=== PATIENT | female | born 1970 | race Caucasian/White ===

== ENCOUNTER 2019-10-25 09:33 | Outpatient (CLI) | payer BC ==
--- NOTE | 2019-10-25 15:48 | MRI ---
MRI OF THE RIGHT KNEE: 10/25/19 PROVIDED CLINICAL HISTORY: Knee pain. FINDINGS: No comparisons. The anterior cruciate ligament, posterior cruciate ligament, lateral collateral ligamentous complex, and extensor mechanism appear intact. There is partial thickness tearing involving the anterior fiber s of the superficial MCL proximally. There is a deficient appearance to the free edge of the body of the lateral meniscus, compatible with radial tear. The medial meniscus demonstrates no evidence for tear. No focal articular cartilage defect is apparent. There is mild edema within the lateral infrapatellar at suggesting a patellar tracking abnormality. There is partial thickness articular cartilage fissur ing involving the medial patellar facet. Patella souleymane is noted. There is marrow edema involving the lateral greater than medial femoral epicondyles. Regional marrow and muscular signal appear otherwise normal. There is a small knee joint effusion. IMPRESSION: 1. Partial MCL tear. 2. Findings suspicious for radial tear involving the body of the lateral meniscus. 3. Contusions involving the lateral greater than medial femoral epicondyles. 4. Patellar chondrosis as described. 5. Small knee joint effusion. 6. Edema within the lateral infrapatellar fat, which can be seen in a setting of patellar tracki ng abnormality. POS: BARRON
== END 2019-10-25 09:34 | disposition home or self-care (01) ==
LOC: SCSMRI 09:33
PROVIDERS: ATTEND Orthopaedic Surgery
DX: S83.411A Sprain of medial collateral ligament of right knee, initial encounter (principal); S80.01XA Contusion of right knee, initial encounter; M25.461 Effusion, right knee; M22.2X1 Patellofemoral disorders, right knee; R60.0 Localized edema

== ENCOUNTER 2020-04-18 07:34 | Outpatient (CLI) | payer BC ==
[2020-04-18 18:27] LABS: SARS-CoV-2 MS2 Positive; SARS-CoV-2 N Gene Negative; SARS-CoV-2 S Gene Negative; SARS-CoV-2 by NAA Not Detected (NotDetected); SARS-CoV-2 orf1ab Negative
== END 2020-04-18 07:35 | disposition home or self-care (01) ==
LOC: LABBT 07:34
PROVIDERS: ATTEND Orthopaedic Surgery
DX: S83.411A Sprain of medial collateral ligament of right knee, initial encounter (principal); M17.11 Unilateral primary osteoarthritis, right knee; Z20.822 Contact with and (suspected) exposure to COVID-19
CPT/HCPCS: 87635; U0003; U0005

== ENCOUNTER 2020-04-23 05:49 | Day surgery (SDC) | payer BC ==
[2020-04-19 10:51] VITALS: BMI 22.4
[2020-04-23] MEDS ORDERED: Bupivacaine 0.25% HCL 30 ML VIAL ONE (06:39)
[2020-04-23] MEDS ORDERED: EPINEPHrine 1 MG/ML AMP ONE (06:39)
[2020-04-23] MEDS ORDERED: Fentanyl 100 MCG/2 ML VIAL ONE (07:00)
[2020-04-23] MEDS ORDERED: Scopolamine 1.5 mg/72 hour Patch ONE (07:02)
[2020-04-23] MEDS ORDERED: Midazolam HCl 2 mg/2 ml Vial ONE (07:02)
[2020-04-23] MEDS ORDERED: Lidocaine 1% (PF) 30 ML VIAL ONE (07:47)
[2020-04-23] MEDS ORDERED: Meperidine HCl/PF 25 MG/ML VIAL ONE (08:12)
[2020-04-23] MEDS ORDERED: Lidocaine 1% PF 5 ML VIAL ONE (08:53)
[2020-04-23] MEDS ORDERED: PROPOFOL 200 MG/20 ML VIAL ONE (08:53)
[2020-04-23] MEDS ORDERED: Metoclopramide HCl 10 MG/2 ML VIAL ONE (08:53)
[2020-04-23] MEDS ORDERED: diphenhydrAMINE 50 MG/ML VIAL ONE (08:53)
[2020-04-23] MEDS ORDERED: Ondansetron PF 4 MG/2 ML Vial ONE (08:53)
[2020-04-23] MEDS ORDERED: Dexamethasone 20 MG/5 ML VIAL ONE (08:53)
--- NOTE | 2020-04-23 10:52 | OP ---
DATE OF PROCEDURE: 04/23/2020 PREOPERATIVE DIAGNOSES: 1. Healed partial medial collateral ligament tear. 2. Partial radial tear lateral meniscus. 3. Patellar chondrosis. 4. Knee effusion. 5. Infrapatellar friction fat pad syndrome/track abnormality. POSTOPERATIVE DIAGNOSES: 1. Fat pad friction syndrome. 2. Grade 1 patellar chondrosis. 3. Grade 1 lateral tibial plateau changes. 4. No radial tear of lateral meniscus. ANESTHESIA: Rebecca. Patient received an LMA with 30 mL of Marcaine 0.25% with epinephrine, preprocedure, and 20 mL of lidocaine 1% plain, postprocedure. ESTIMATED BLOOD LOSS: Less than 20 mL. TOURNIQUET TIME: 17 minutes at 250 mmHg. ANTIBIOTICS: Ancef 2 g. COMPLICATIONS: None. HISTORY OF PRESENT ILLNESS: Ms. Griffith is a pleasant 49-year-old female presents to me with right knee pain. The pain has been present since hurting her knee over the summer in September. The patient had failed conservative measures to include an injection, home therapy, anti-inflammatories. The patient continued to have pain, tried conservative measures and desired a diagnostic arthroscopy. I discussed risks and benefits, debridement, shaving, evaluation of joint to include pain, scar, bleeding, infection, damage to vital structures, decreased range of motion, strength, knee pain despite surgical intervention, need for further surgeries, damage to vital structures, blood clots, loss of life or limb. She understood the risks and benefits of procedure and elected to proceed. DESCRIPTION OF PROCEDURE: Time-out was performed designating the patient's right lower extremity as the operative site based on site, consent, and marking. After time-out, the patient's right lower extremity was prepped and draped in a sterile fashion. I injected 30 mL of Marcaine with epinephrine in the joint preprocedure, which was washed out. I then injected lidocaine postprocedure. I placed an anterolateral portal, which I placed just lateral to the patellar tendon, I dissected, and placed my scope into the knee joint, looked over the fat pad. Under spinal localization, placed my anteromedial portal. I excised my fat pad attachment in the trochlea. Being happy with my fat pad excision, began my diagnostic scope. Saw an intact ACL and PCL. There were some grade 1 cartilage changes in the patella. No full-thickness defects, significant changes through the trochlear groove. Looked in the medial superior pouch for any loose bodies, which there were none. There was no plica that could be seen. I looked in the medial and lateral gutters, no loose bodies had good meniscal attachments. I looked in the lateral compartment for the radial tear that was there and I could not find a component of a radial tear. There was maybe a subtle undersurface tear and partial tearing of the posterior aspect of the meniscus, but it did not extrude into the joint, it was not unstable. Therefore, I left it without debriding it, but no radial tear was found. The popliteal hiatus, looked at the roots and saw no partial tearing and moved medially. There were some grade 1 changes noted just on the tibia, but no full-thickness cartilage defects on the lateral femoral condyle. Moved medially, visualized the medial femoral condyle, looked throughout, probed the medial meniscus, saw no tears, no signs of damage to the roots, anterior- posterior or any signs of disconnection from meniscus to the capsular junction. I went back, washed, ensured I had debrided fat pad, looked again medial and lateral for any other cartilage defects in the femoral condyles. I washed and injected lidocaine plain into joint, into the soft tissues and then washed and closed. The patient will be weightbearing as tolerated. She will be followed inhouse. Potentially, we are going to send her some therapy postoperative for control of her knee. Job ID: [id number]
== END 2020-04-23 10:07 | disposition home or self-care (01) ==
LOC: SDC 05:49
PROVIDERS: ATTEND Orthopaedic Surgery
PROC: 0SBC4ZZ Excision of Right Knee Joint, Percutaneous Endoscopic Approach (ICD-10-PCS; principal; 2020-04-23)
DX: M23.8X1 Other internal derangements of right knee (principal); M17.11 Unilateral primary osteoarthritis, right knee; Z79.1 Long term (current) use of non-steroidal anti-inflammatories (NSAID); Z91.040 Latex allergy status; W01.0XXA Fall on same level from slipping, tripping and stumbling without subsequent striking against object, initial encounter; Y92.814 Boat as the place of occurrence of the external cause
CPT/HCPCS: J0171; J0690; J1100; J1200; J2001; J2175; J2250; J2405; J2704; J2765; J3010; S0020

== ENCOUNTER 2022-04-07 07:25 | Outpatient (CLI) | payer BC | END 2022-04-07 07:26 | disposition home or self-care (01) | LOC: SCSMRI 07:25 | PROVIDERS: ATTEND Orthopaedic Surgery Hand Surgery | DX: S63.639A Sprain of interphalangeal joint of unspecified finger, initial encounter (principal) ==